=== PATIENT | female | born 1955 | race Caucasian/White ===

== ENCOUNTER 2021-02-05 09:20 | Outpatient (CLI) | payer OTHER, MEDICARE ==
[2021-02-05 18:05] LABS: SARS-CoV-2 PCR by NAA Not Detected (NotDetected)
== END 2021-02-05 09:21 | disposition home or self-care (01) ==
LOC: CSHLAB 09:20
PROVIDERS: ATTEND Internal Medicine Critical Care Medicine
DX: Z20.822 Contact with and (suspected) exposure to COVID-19 (principal)
CPT/HCPCS: U0003; U0005

== ENCOUNTER 2021-02-10 09:33 | Outpatient (CLI) | payer MEDICARE, BC | END 2021-02-10 09:34 | disposition home or self-care (01) | LOC: CSHCP 09:33 | PROVIDERS: ATTEND Internal Medicine Critical Care Medicine | DX: J45.909 Unspecified asthma, uncomplicated (principal) | CPT/HCPCS: 94060; 94726; 94729; 94760 ==

== ENCOUNTER 2021-09-18 12:00 | Outpatient (CLI) | payer MEDICARE, BC, OTHER | END 2021-09-18 12:01 | disposition home or self-care (01) | LOC: CSHRAD 12:00 | PROVIDERS: ATTEND Family Medicine | DX: M79.662 Pain in left lower leg (principal); I82.452 Acute embolism and thrombosis of left peroneal vein ==

== ENCOUNTER 2023-06-16 11:39 | Outpatient (CLI) | payer MEDICARE, BC | END 2023-06-16 11:40 | disposition home or self-care (01) | LOC: CSHRAD 11:39 | PROVIDERS: ATTEND Family Medicine | DX: M89.9 Disorder of bone, unspecified (principal); M19.011 Primary osteoarthritis, right shoulder ==